=== PATIENT | male | born 1975 | race Hispanic/Latino ===

== ENCOUNTER → 2021-03-18 | Outpatient (CLI) | payer MEDICARE | END | disposition home or self-care (01) | LOC: RAH 07:18 | PROVIDERS: ATTEND Family Medicine | DX: R10.84 Generalized abdominal pain (principal); K76.0 Fatty (change of) liver, not elsewhere classified; R16.0 Hepatomegaly, not elsewhere classified | CPT/HCPCS: 76700 ==